=== PATIENT | female | born 1975 | race Caucasian/White ===

== ENCOUNTER 2018-06-27 20:57 | Emergency (ER) | payer SELFPAY ==
[~2018-06-27] VITALS: Ht 157.5 cm; Wt 49.9 kg
[2018-06-27 20:57] VITALS: BP 142/75
--- NOTE | 2018-06-27 21:05 | NUR ---
URINE SAMPLE OBTAINED. VS STABLE. BP 118/78. HR 89. R 18. O2 SAT 98% ON RA. Pt WAITING COMFORTABLY IN BED. NO S/S OF ACUTE DISTRESS OR SOB NOTED.
[2018-06-27] MEDS ORDERED: SULFAMETH/TRIMETH 800/160 MG 1 UDTAB TABLET PO ONE ×2 (21:51→22:00)
--- NOTE | 2018-06-27 21:55 | NUR ---
BACTRIM 800/160MG GIVEN PO.
== END 2018-06-27 22:06 | disposition home or self-care (01) ==
LOC: ER 20:58
DX: N39.0 Urinary tract infection, site not specified (principal)
CPT/HCPCS: 84703-TC; 87086-TC; A4606; Z7610

== ENCOUNTER 2020-05-23 18:24 | Inpatient (IN) | payer OTHER ==
[~2020-05-23] VITALS: Ht 152.4 cm; Wt 55.3 kg
--- NOTE | 2020-05-23 19:14 | NUR ---
BIBS FROM HOME TO ER BED 12. AAOX4. NOT IN RESP DISTRESS. AMBULATORY. CAME ON FOR GEN ABDOMINAL PAIN, CRAMPING IN NATURE FOR THE PAST WEEK WORST IN THE PAST 24HRS. RATES PAIN 8/10. PT DOES REPORT SHE IS NAUSEOUS. URINE WAS COLLECTED AND SENT TO LAB. WAS A THE BEDSIDE FOR EVAL. ORDERS RECEIVED NOTED AND CARRIED OUT. IV LINE OBGTAINED ON L AC 18G. BLOOD DRAWN AND GIVEN TO FLIGHT SURGEON AT BEDSIDE.
[2020-05-23 19:16] LABS: BASOPHILS # (AUTO) 0.1 /CMM (0.0-0.2); BASOPHILS % (AUTO) 0.4 % (0.0-2.0); EOSINOPHILS % (AUTO) 0.6 % (0.0-6.0); HEMATOCRIT 41 % (33-45); HEMOGLOBIN 13.5 g/dL (11.5-14.8); LYMPHOCYTES # (AUTO) 1.5 /CMM (0.8-4.8); LYMPHOCYTES % (AUTO) 10.9 % (20.0-44.0); MEAN CORPUSCULAR HGB CONC 33 g/dl (31.0-36.0); MEAN CORPUSCULAR VOLUME 94 fL (82-100); MONOCYTES # (AUTO) 0.9 /CMM (0.1-1.30); MONOCYTES % (AUTO) 6.8 % (2.0-12.0); NEUTROPHILS # (AUTO) 10.9 /CMM (1.8-8.9); NEUTROPHILS % (AUTO) 81.3 % (43.0-81.0); PLATELET COUNT (AUTO) 248 /CMM (150-450); RED BLOOD CELL COUNT(AUTO) 4.38 MIL/uL (4.0-5.2); WHITE BLOOD COUNT (AUTO) 13.4 K/uL (4.3-11.0)
[2020-05-23 19:24] LABS: CALCIUM, SERUM 8.8 mg/dL (8.5-10.1); CREATININE 0.7 mg/dL (0.6-1.3); POTASSIUM 4.2 mmol/L (3.5-5.1)
[2020-05-23 19:26] LABS: APPEARANCE,URINE Clear (CLEAR); BILIRUBIN,URINE SMALL (NEGATIVE); BLOOD, URINE Negative Ery/uL (NEGATIVE); COLOR,URINE Yellow (YELLOW); KETONES,URINE 80 (NEGATIVE); LEUKOCYTE ESTERASE ,URINE Negative (NEGATIVE); NITRITE, URINE Negative (NEGATIVE); PH,URINE 6.5 (5.0-8.0); PROTEIN,URINE Trace mg/dl (NEGATIVE); UGLUCOSE Negative (NEGATIVE); UROBILINOGEN,URINE 0.2 EU/dL (0.2)
[2020-05-23 19:30] LABS: BACTERIA,URINE Rare /HPF (None Seen); RBC,URINE NONE SEEN /HPF (0-2); SQUAMOUS EPITHELIAL CELL,UR Few /HPF (None Seen); WBC,URINE NONE SEEN /HPF (0-3)
[2020-05-23 19:31] LABS: BILIRUBIN,DIRECT 0.1 mg/dL (0.0-0.2); BILIRUBIN,TOTAL 0.5 mg/dL (0.2-1.0); TOTAL PROTEIN, SERUM 7.1 g/dL (6.4-8.2)
[2020-05-23] MEDS ORDERED: MORPHINE SULFATE INJ 2 MG/ML DISP.SYRIN ONE (19:55)
[2020-05-23] MEDS ORDERED: ONDANSETRON HCL/PF 4 MG/2 ML VIAL ONE (19:55)
[2020-05-23] MEDS ORDERED: MORPHINE SULFATE INJ 2 MG/ML DISP.SYRIN IV ONE (20:00)
[2020-05-23] MEDS ORDERED: IV NS 0.9% 1,000 ML IV ONE (20:00)
[2020-05-23] MEDS ORDERED: ONDANSETRON HCL/PF - ER 4 MG/2 ML VIAL IV ONE (20:00)
[2020-05-23] MEDS ORDERED: PIPERACILLIN /TAZOBACTAM 3.375 G in IV D5W 50 ML IV ONE (22:00)
[2020-05-23] MEDS ORDERED: HYDROMORPHONE INJ 0.5 MG/0.5 ML SYRINGE IV ONE (22:00)
[2020-05-23] MEDS ORDERED: PIPERACILLIN /TAZOBACTAM 3.375 G VIAL IV ONE (22:20)
[2020-05-23] MEDS ORDERED: HYDROMORPHONE 1 MG/1 ML DISP.SYRIN ONE (22:21)
--- NOTE | 2020-05-23 23:18 | NUR ---
REPORT GIVEN TO RONEN HERNANDEZ FOR RACIEL
--- NOTE | 2020-05-23 23:29 | NUR ---
PT BEING TRANSPORTED TO UNIT ON [facility] WITH EMT AT BEDSIDE. PT IS IN STABLE CONDITION FOR TRASPORT. NAD NOTED
[2020-05-23 23:30] VITALS: BP 117/70
[2020-05-23] MEDS ORDERED: ONDANSETRON HCL/PF 4 MG/2 ML VIAL IVP PRN (23:30)
[2020-05-23] MEDS ORDERED: ACETAMINOPHEN 325 MG TABLET PO PRN (23:30)
[2020-05-23] MEDS ORDERED: ZOLPIDEM TARTRATE 5 MG TABLET PO PRN (23:30)
[2020-05-23] MEDS ORDERED: MAGNESIUM HYDROXIDE 30 ML UDC PO PRN (23:30)
[2020-05-23] MEDS ORDERED: MORPHINE SULFATE INJ 2 MG/ML DISP.SYRIN IV PRN (23:30)
[2020-05-23] MEDS ORDERED: HYDROCODONE/APAP 5/325MG 1 EACH TABLET PO PRN (23:30)
[2020-05-23] MEDS: IV NS 0.9% 1,000 ML IV PRN (23:36)
[2020-05-23 23:45] VITALS: BP 117/70
--- NOTE | 2020-05-23 23:45 | NUR ---
MS DRIVEMATIC MACHINE OPERATOR NOTES RECEIVED PATIENT FROM ER VIA NIELSRDONY, ALERT AND ORIENTED X 4. AMBULATORY AND VERBALLY RESPONSIVE. ABLE TO FOLLOW DIRECTIONS. BREATHING REGULAR AND UNLABORED ON ROOM AIR. LEFT AC G18 IV LINE INTACT AND PATENT, FLUSHING WELL. BODY ASSESSMENT DONE, SKIN INTACT CLEAN AND DRY. VITAL SIGNS AND BELONGINGS CHECKED BY EQUAL OPPORTUNITY REPRESENTATIVE. DENIES SUICIDAL IDEATION OR PAIN/DISCOMFORT AT THIS TIME. ADVISED ON NOTHING BY MOUTH. DOESN'T HAVE ADVANCE DIRECTIVES AND WISHED TO BE FULL CODE. BED LOW AND LOCKED ON SEMI FOWLERS POSITION. CALL LIGHT IN REACH. WILL CONTINUE TO MONITOR.
--- NOTE | 2020-05-24 00:30 | NUR ---
MS RN NOTES PATIENT REFUSED TO BE ON DVT PUMP, WILL F/U WITH MD FOR ORDERS OF CHEMICAL DVT PPX.
[2020-05-24] MEDS ORDERED: PIPERACILLIN /TAZOBACTAM 3.375 G in IV D5W 50 ML IV SCH (04:30)
[2020-05-24] MEDS ORDERED: PIPERACILLIN /TAZOBACTAM 3.375 G VIAL IV ONE (04:33)
[2020-05-24] MEDS: HYDROMORPHONE 1 MG/1 ML DISP.SYRIN IV PRN ×3 (04:46→13:54)
--- NOTE | 2020-05-24 04:50 | NUR ---
MS RN NOTES COMPLAINED OF 8/10 ABDOMINAL PAIN, DILAUDID 1MG GIVEN IV PUSH. NON-PHARMACOLOGICAL INTERVENTIONS PROVIDED. VITAL SIGNS WNL. WILL CONTINUE TO MONITOR.
[2020-05-24] MEDS ORDERED: HYDR200T81 PO (05:08)
--- NOTE | 2020-05-24 06:35 | NUR ---
MS RN CLOSING NOTES PATIENT IN BED ALERT AND ORIENTED X 4. AFEBRILE WITH NO S/S OF DISTRESS OBSERVED. LEFT AC G18 IV LINE PATENT AND INFUSING WELL. NO COMPLAINTS OF PAIN/DISCOMFORT REPORTED AT THIS TIME. MAINTAINED NPO. BED LOW AND LOCKED ON SEMI FOWLERS POSITION. CALL LIGHT IN REACH. WILL ENDORSE TO MORNING SHIFT FOR RACIEL.
[2020-05-24 07:33] LABS: CALCIUM, SERUM 8.5 mg/dL (8.5-10.1); CREATININE 0.6 mg/dL (0.6-1.3); MAGNESIUM 2.1 mg/dL (1.8-2.4); PHOSPHORUS 3.7 mg/dL (2.5-4.9); POTASSIUM 4.2 mmol/L (3.5-5.1)
[2020-05-24 07:42] LABS: BASOPHILS % (AUTO) 0.1 % (0.0-2.0); EOSINOPHILS % (AUTO) 0.1 % (0.0-6.0); HEMATOCRIT 38 % (33-45); HEMOGLOBIN 12.5 g/dL (11.5-14.8); LYMPHOCYTES % (AUTO) 7.2 % (20.0-44.0); MEAN CORPUSCULAR HGB CONC 33 g/dl (31.0-36.0); MEAN CORPUSCULAR VOLUME 94 fL (82-100); MONOCYTES # (AUTO) 0.9 /CMM (0.1-1.30); MONOCYTES % (AUTO) 6.3 % (2.0-12.0); NEUTROPHILS # (AUTO) 12.5 /CMM (1.8-8.9); NEUTROPHILS % (AUTO) 86.3 % (43.0-81.0); PLATELET COUNT (AUTO) 199 /CMM (150-450); RED BLOOD CELL COUNT(AUTO) 4.05 MIL/uL (4.0-5.2); WHITE BLOOD COUNT (AUTO) 14.5 K/uL (4.3-11.0)
[2020-05-24 08:00] VITALS: BP 105/64
--- NOTE | 2020-05-24 08:00 | NUR ---
m/s set up worker: initial assessment received pt in bed awake, a/ox4. remains npo. iv fluids infusing. no c/o pain at this time. instructed to call for assistance. will continue to monitor.
--- NOTE | 2020-05-24 09:00 | NUR ---
m/s steam service inspector: cardio consult seen by dr. goodrich and pt faith for surgery.
--- NOTE | 2020-05-24 09:43 | NUR ---
m/s nature photographer: notes c/o 06/06 abdominal pain, medicated with dilaudid 1mg ivp by rn. instructed to call for assistance. will continue to monitor.
--- NOTE | 2020-05-24 10:13 | NUR ---
m/s hospital unit coordinator: notes pt verbalized relief of abdominal pain. will continue to monitor.
[2020-05-24] MEDS: IV NS 0.9% 1,000 ML IV PRN (10:44)
[2020-05-24] MEDS: PIPERACILLIN /TAZOBACTAM 3.375 G in IV D5W 50 ML IV SCH ×2 (10:50→17:19)
--- NOTE | 2020-05-24 11:15 | NUR ---
m/s boat detailer: surgeon consult lillian (palliative senior np) at bedside and explained the procedure involve and risks, pt verbalized understanding. per palliative senior np, she will put the order in. pt scheduled at 1600 as stated.
--- NOTE | 2020-05-24 12:30 | NUR ---
m/s primary school teacher librarian: notes consent obtain for <Laparoscopic appendectomy possible open, possible any other indicated, procedure, anesthesia, and blood products. pt verbalized understanding of procedure. pt remains npo.
--- NOTE | 2020-05-24 13:54 | NUR ---
m/s real estate sales agent: notes c/o 08/06 abdominal pain, medicated with dilaudid 1mg ivp by rn. will continue to monitor.
--- NOTE | 2020-05-24 14:04 | NUR ---
m/s acid changer: notes pt c/o n/v, medicated with zofran 4mg ivp by rn. pt remains npo and scheduled for surgery at 1600.
--- NOTE | 2020-05-24 14:24 | NUR ---
m/s manager proposal: notes pt verbalized relief of pain. instructed to call for assistance.
--- NOTE | 2020-05-24 14:34 | NUR ---
m/s mobile manager: notes n/v resolved. instructed to call for assistance. will continue to monitor.
[2020-05-24] MEDS ORDERED: ANESTHESIA TRAY IN PYXIS 1 EA TRAY MC ONE (14:46)
[2020-05-24] MEDS ORDERED: BUPIVACAINE MPF 0.5% W/EPI INJ 30 ML VIAL ONE (14:46)
[2020-05-24] MEDS ORDERED: LIDOCAINE 1% INJ 50 ML MDV IJ ONE (14:46)
--- NOTE | 2020-05-24 15:55 | NUR ---
m/s vice president network: notes joesph (recovery nurse) here to leaf size picker the pt via bed with chart. zosyn ivpb given to joesph (recovery nurse) to administer after surgery.
[2020-05-24] MEDS ORDERED: FENTANYL PF 250MCG/5ML AMPUL ONE (16:23)
[2020-05-24] MEDS ORDERED: FAMOTIDINE/PF INJ 20 MG/2 ML VIAL IV ONE (16:23)
[2020-05-24] MEDS ORDERED: MIDAZOLAM HCL 2 MG/2ML VIAL ONE (16:23)
[2020-05-24] MEDS ORDERED: ROCURONIUM BROMIDE 50 MG/5 ML ONE (16:24)
[2020-05-24 18:10] VITALS: BP 114/72
--- NOTE | 2020-05-24 18:10 | NUR ---
m/s optical laboratory mechanic: notes received pt from recovery with dx: s/p lap appy and washout. incision to abdomen with dermabond. no drainage/discharge noted. no c/o sob or any discomfort at this time. iv fluids connected. clear liquid diet provided. hob elevated. needs attended. instructed to call for assistance. will continue to monitor.
[2020-05-24 18:25] VITALS: BP 123/71
--- NOTE | 2020-05-24 18:30 | NUR ---
m/s chicken hanger: notes ice pack and incentive spirometry provided with teachings, pt verbalized understanding.
--- NOTE | 2020-05-24 19:00 | NUR ---
m/s academic coordinator: notes report given to kevin (rn) for continuity of care.
--- NOTE | 2020-05-24 19:25 | NUR ---
RN OPENING NOTE RECEIVED PT A/O X 4, PT SITTING UP IN BED WITH BLE DVT PUMPS ON. DENIES PAIN OR DISCOMFORT AT THIS TIME. IV TO LAC PATENT AND INTACT FLUSHING WELL. NS INFUSING AT 100 ML/HR. PT AMBULATED TO RESTROOM WITH NO ASSISTANCE, WILL CONTINUE TO MONITOR PT.
[2020-05-24 20:00] VITALS: BP 93/57
[2020-05-25] MEDS: PIPERACILLIN /TAZOBACTAM 3.375 G in IV D5W 50 ML IV SCH ×4 (00:01→17:06)
--- NOTE | 2020-05-25 07:00 | NUR ---
RN CLOSING NOTE PT SITTING UP IN BED AWAKE, IV TO LAC PATENT AND INTACT FLUSHING WELL. NS INFUSING AT 100 ML/HR. PT AMBULATED TO RESTROOM X 3 WITH NO ASSISTANCE DURING SHIFT. TOLERATED WELL. NO C/O PAIN THROUGHOUT SHIFT NO DRAINAGE TO INCISION. TOLERATED CLEAR LIQUIDS. SIDE RAILS UP X 2, CALL LIGHT WITHIN REACH. ENDORSED TO AM RN FOR RACIEL
--- NOTE | 2020-05-25 07:30 | NUR ---
MS/RN OPENING NOTES Patient awake resting in bed, A&O x 4. Denies any pain/discomfort noted at this time. Breathing even and non-labored on room air. No respiratory or cardiac distress noted. IV access on LAC #18, patent and intact, and running NS @100 ml/hr. No infiltration/infection/bleeding noted on site. Patient is ambulatory, with steady gait. Instructed patient to still use call light if in need of assistance getting up. Sensation from all peripheral extremities intact. Fall precautions maintained. Will continue current medical management.
[2020-05-25 07:38] LABS: BASOPHILS % (AUTO) 0.3 % (0.0-2.0); HEMATOCRIT 34 % (33-45); HEMOGLOBIN 11.1 g/dL (11.5-14.8); LYMPHOCYTES # (AUTO) 1.5 /CMM (0.8-4.8); LYMPHOCYTES % (AUTO) 22.5 % (20.0-44.0); MEAN CORPUSCULAR HGB CONC 33 g/dl (31.0-36.0); MEAN CORPUSCULAR VOLUME 95 fL (82-100); MONOCYTES # (AUTO) 0.6 /CMM (0.1-1.30); MONOCYTES % (AUTO) 9.1 % (2.0-12.0); NEUTROPHILS # (AUTO) 4.6 /CMM (1.8-8.9); NEUTROPHILS % (AUTO) 67.1 % (43.0-81.0); PLATELET COUNT (AUTO) 170 /CMM (150-450); RED BLOOD CELL COUNT(AUTO) 3.59 MIL/uL (4.0-5.2); WHITE BLOOD COUNT (AUTO) 6.9 K/uL (4.3-11.0)
[2020-05-25 07:54] LABS: CALCIUM, SERUM 8.4 mg/dL (8.5-10.1); CREATININE 0.6 mg/dL (0.6-1.3); MAGNESIUM 2.1 mg/dL (1.8-2.4); PHOSPHORUS 2.2 mg/dL (2.5-4.9); POTASSIUM 4.3 mmol/L (3.5-5.1)
[2020-05-25 08:00] VITALS: BP_SYST 103; BP_SYST 99; BP_DIAS 59; BP_DIAS 66
[2020-05-25] MEDS: HYDROXYCHLOROQUINE 200 MG TABLET PO SCH (09:50)
[2020-05-25 16:00] VITALS: BP 110/65
[2020-05-25] MEDS ORDERED: K PHOS NEUTRAL 250 MG TABLET PO ONE (16:00)
--- NOTE | 2020-05-25 18:54 | NUR ---
MS/RN CLOSING NOTES Patient in bed, A&O x 4. No complaints of pain/discomfort noted throughout the shift. Breathing even and non-labored on room air, no SOB noted. No respiratory or cardiac distress noted. IV access on LAC #18, patent and intact, saline locked, patient refused to infuse fluids. No infiltration/infection/bleeding noted on site. Instructed patient to still use call light if in need of assistance getting up. Patient reports to have been passing gas, but no BM yet. Sensation from all peripheral extremities intact. Fall precautions maintained. Will endorse to night club manager nurse.
--- NOTE | 2020-05-25 19:59 | NUR ---
RN NOTES RECEIVED PATIENT AWAKE ALERT ORIENTED X4, AMBULATORY, DENIES PAIN OR DISCOMFORT AT THIS TIME. SAFETY MEASURES IN PLACE, CALL LIGHT WITHIN EASY REACH, PATIENT IS WEARING SLIP RESISTANT SOCKS. ALL NEEDS ANTICIPATED, KEEP CLEAN WARM DRY AND COMFORTABLE. WILL CONTINUE TO MONITOR ACCORDINGLY.
[2020-05-25 20:00] VITALS: BP 116/75
[2020-05-26] MEDS: PIPERACILLIN /TAZOBACTAM 3.375 G in IV D5W 50 ML IV SCH ×3 (00:01→11:17)
--- NOTE | 2020-05-26 06:46 | NUR ---
RN NOTES ALL NEEDS ATTENDED AND MET ABLE TO REST AND SLEPT AT INTERVALS, KEPT CLEAN WARM DRY AND COMFORTABLE, SAFETY MEASURES IN PLACE, ABLE TO AMBULATE FREELY, WALKING THE HALLWAY 3 TIMES, NO COMPLAINTS OF PAIN, DISCOMFORT TOLERABLE. ABLE TO PASS GAS THROUGHOUT THE NIGHT. WILL ENDORSE TO AM NURSE FOR CONTINUITY OF CARE.
--- NOTE | 2020-05-26 07:30 | NUR ---
MS/RN OPENING NOTES Received patient awake sitting on bed, A&O x 4. Breathing even and non-labored on room air, no SOB noted. No cardiac distress noted. Denies pain/discomfort at this time. IV access on LAC #18, patent and intact, and flushing well. Refuses to receive fluids. No infiltration/infection/bleeding noted on site. Patient ambulates, still instructed patient to still use call light if in need of assistance getting up. Sensation from all peripheral extremities intact. Fall precautions maintained. Will continue current plan of care.
[2020-05-26 07:33] LABS: BASOPHILS % (AUTO) 0.6 % (0.0-2.0); EOSINOPHILS % (AUTO) 2.4 % (0.0-6.0); HEMATOCRIT 31 % (33-45); HEMOGLOBIN 10.4 g/dL (11.5-14.8); LYMPHOCYTES # (AUTO) 1.6 /CMM (0.8-4.8); LYMPHOCYTES % (AUTO) 36.7 % (20.0-44.0); MEAN CORPUSCULAR HGB CONC 33 g/dl (31.0-36.0); MEAN CORPUSCULAR VOLUME 93 fL (82-100); MONOCYTES # (AUTO) 0.4 /CMM (0.1-1.30); MONOCYTES % (AUTO) 10.1 % (2.0-12.0); NEUTROPHILS # (AUTO) 2.2 /CMM (1.8-8.9); NEUTROPHILS % (AUTO) 50.2 % (43.0-81.0); PLATELET COUNT (AUTO) 159 /CMM (150-450); RED BLOOD CELL COUNT(AUTO) 3.34 MIL/uL (4.0-5.2); WHITE BLOOD COUNT (AUTO) 4.4 K/uL (4.3-11.0)
[2020-05-26 07:47] LABS: CREATININE 0.6 mg/dL (0.6-1.3); MAGNESIUM 1.7 mg/dL (1.8-2.4); PHOSPHORUS 3.6 mg/dL (2.5-4.9); POTASSIUM 3.6 mmol/L (3.5-5.1)
[2020-05-26 08:00] VITALS: BP 108/71
[2020-05-26] MEDS: HYDROXYCHLOROQUINE 200 MG TABLET PO SCH (08:34)
[2020-05-26 10:58] LABS: IRON, SERUM 21 ug/dl (50-175); TOTAL IRON BINDING CAPACITY 145 ug/dl (250-450)
[2020-05-26] MEDS ORDERED: Magnesium 1GM/D5W 100ML PREMIX 100 ML IV SCH (13:00)
[2020-05-26 13:18] LABS: FERRITIN 173 ng/mL (8-388)
--- NOTE | 2020-05-26 13:45 | NUR ---
MS/RN NOTES Removed patient's IV with catheter intact, no bleeding/infection/infiltration noted. Dr. Hay at bedside, states "stop mag and discontinue IV since she's going to get discharge in an hour." Orders carried out.
[2020-05-26] MEDS ORDERED: ONDA4TAB11 PO (16:12)
[2020-05-26] MEDS ORDERED: AMOX-427 PO (16:12)
--- NOTE | 2020-05-26 17:30 | NUR ---
MS/FLASH WELDER NOTES Patient picked up by sonJan, in a private car. Patient remained stable, VSS, A&O x 4. Breathing even and non-labored on RA. No respiratory or cardiac distress noted. Removed IV with catheter intact, placed clean dry dressing on the site. No s/s of bleeding, infiltration, infection noted. Sensation from all peripheral extremities intact. Skin is intact, photos of abdominal incisions and IV site taken and placed on chart. Explained discharge instructions to patient, patient verbalizes understanding. Patient left facility safely with discharge instructions, hospitalization documents, and belongings in hand.
== END 2020-05-26 17:45 | disposition home or self-care (01) | DRG 233 ==
LOC: ER 18:31 → MED 22:21
PROVIDERS: ADMIT Nurse Practitioner Acute Care; ATTEND Nurse Practitioner Acute Care
PROC: 0DTJ4ZZ Resection of Appendix, Percutaneous Endoscopic Approach (ICD-10-PCS; principal; 2020-05-23)
DX: K35.32 Acute appendicitis with perforation, localized peritonitis, and gangrene, without abscess (principal); M79.7 Fibromyalgia; M32.9 Systemic lupus erythematosus, unspecified; D25.9 Leiomyoma of uterus, unspecified; N83.00 Follicular cyst of ovary, unspecified side; K38.1 Appendicular concretions; F17.200 Nicotine dependence, unspecified, uncomplicated
CPT/HCPCS: 36415; 71045-TC; 76856-TC; 80048-TC; 80061-TC; 80076-TC; 81000-TC; 82728-TC; 83540-TC; 83690-TC; 83735-TC; 84100-TC; 84702-TC; 85025-TC; 85730-TC; 87081-TC; 88304-TC; G0378; J1170; J2250; J2270; J2405; J2543; J3010; J3475; J3490; J7030; J7060